=== PATIENT | female | born 1985 | race Caucasian/White ===

== ENCOUNTER 2022-10-13 06:15 | Day surgery (SDC) | payer BC, SELFPAY ==
[2022-10-13] VITALS (13 sets, daily range): BP systolic 97–108; BP diastolic 56–76; PULSE 57–75; RESP 16–20; TEMP 35.9–36.4; O2SAT 94–99
[2022-10-13] MEDS: LACTATED RINGERS 1000 ML 1,000 ML 100 ML IV ×2 (06:25→08:52)
[2022-10-13 06:42] LABS: Ur HCG Qualitative* Negative (Negative)
[2022-10-13] MEDS: SODIUM CHLORIDE 0.9 % (FLUSH) 10 ML SYRINGE IVF (07:08)
[2022-10-13] MEDS: CEFAZOLIN 1 GM inj IVP (07:35)
[2022-10-13] MEDS: BUPIVACAINE 0.5% 30 ML 20 ML INJECTION (07:44)
--- NOTE | 2022-10-13 08:13 | W.ANESCHARGE ---
Anesthesia Charges Start Date/Time Anesthesia Start Date: 10/13/22 Anesthesia Start Time: 07:25 Stop Date/Time Anesthesia Stop Date: 10/13/22 Anesthesia Stop Time: 09:26
--- NOTE | 2022-10-13 08:50 | W.PM.GYNPROC ---
Procedure Note Date Seen: 10/13/22 Procedure Details: Gynecology Intraoperative Consult I was asked by Dr. Lindsay Adame for an intraoperative consultation for identification of the round ligament. Patient was undergoing an open inguinal hernia repair on the left side. Dr. Adame had already opened the hernia sac and palpated within the peritoneal cavity. She in countered thickened rope-like struck soft tissue structure which she believed to be the round ligament. There was an adjacent lobule of fat. She asked for my assessment of this region. Preoperative CT scan was reviewed. The round ligament does appear thickened on that side, with an adjacent fat lobule. On intraoperative exam, the soft tissue structure was examined and was consistent in appearance with round ligament. Putting this on tension and palpating within the peritoneal cavity, I was able to follow the structure to the uterus, confirming its identity as the round ligament. The fatty lobule adjacent to this was not consistent in appearance with ovary. My impressions were discussed with Dr. Adame during the procedure.
--- NOTE | 2022-10-13 08:58 | SUR.OPER ---
PATIENT QUESTIONS ANSWERED SATISFACTORILY PREOPERATIVELY. PATIENT BROUGHT TO OR #3 PER CART. Patient positioned supine on OR #3 bed.? Perioperative team supported arms on arm boards. Final approval of positioning by surgeon. SURGEON DECLINES OFFER TO SEND EXCISED TISSUE TO PATHOLOGY.
--- NOTE | 2022-10-13 09:18 | P.GSOP_ITS ---
Operative Note Date of procedure: 10/13/22 Pre-op diagnosis: Left inguinal hernia Post-op diagnosis: Incarcerated left inguinal hernia Type of Procedure: Open repair incarcerated left inguinal hernia repair with mesh Indications: The patient is a 37-year-old female who noticed a painful bulge in her left groin. Workup revealed fat within inguinal canal. Clinically this was consistent with incarcerated fat in an inguinal hernia. After discussion of options she agreed to proceed with repair. We chose an open approach to ensure the inflamed incarcerated fat was able to be removed completely. Procedure Description: After discussing the risks and benefits of the procedure, the patient signed informed consent.? The operative site was marked and the patient was brought to the operating room and placed on the operating table in supine position.? Care was taken to pad the patient's pressure points.?? The patient was then intubated by anesthesia.?? The operative site was then prepped and draped in the usual sterile fashion.? A time-out was then performed. Local anesthetic was injected into the skin and subcutaneous tissue overlying the inguinal canal. An ilioinguinal nerve block was performed. An oblique incision was made over the external ring. Dissection was carried down into the subcutaneous tissue using cautery until the external oblique fascia was encountered. This was cleared off. The external ring was identified and after injection of more local anesthetic, the external oblique was incised using a knife. This was extended using the Metzenbaum scissors with care to dissect the underlying structures away from the fascia before cutting. There was an obvious hernia which was present in the canal. This was cleared from inside of the inguinal canal and looped with a Neftaly drain. The sac was fatty in appearance and carefully I was able to dissect out the round ligament. This was divided using cautery. There was no bleeding. Now I was left with the sac proximally which again was quite fatty. I carefully dissected through the fatty tissue. I could palpate tissue within the sac. This did not reduce into the peritoneal cavity. Very carefully I incised the distal end of the sac using a Metzenbaum scissors. I entered the peritoneal cavity. There was nodularity on the sac itself and incarcerated omental fat. The patient's round ligament appeared to be making up the inferior and lateral aspect of the sac. This appeared somewhat large and therefore I ask Dr. Figueroa to come and examine to ensure that this is indeed what this structure was. I carefully examined the fat which was incarcerated in the sac to ensure that it was not an ovary. Dr. Figueroa came into the operating room and agreed with me that this was just incarcerated fat and did not appear ovarian. She then examined the round ligament and was able to trace this back to the uterus with palpation. Confirming that this was indeed the round ligament, and not ovary or fallopian tube, I was able to reduce the tissue and oversewed the peritoneum without disturbing the round ligament. This dropped easily into the abdomen. A piece of polypropylene mesh was obtained and cut to size. This was secured to the pubic tubercle using to 0 Prolene on a double-armed suture. The Prolene was run along the inguinal ligament inferiorly and along the transversalis fascia superiorly around past the internal ring. The ilioinguinal nerve was visible and was carefully preserved and care was taken to ensure that it was not sewn into the mesh. The external oblique fascia was then reapproximated with absorbable suture. The wound was then closed in layers including Abdulaziz's fascia and the dermis with absorbable suture. The skin was then closed with a running subcuticular suture. Sterile dressings were applied. Instrument, sponge, and needle counts were correct at the end of the case. The patient was woken and ta germaine to the PACU in stable condition. Sterile dressings were then applied. ? The patient was then woken and transported to the recovery area in stable condition. ? The patient tolerated the procedure well. Findings: Left inguinal hernia with incarcerated fat. Anesthesia: GETA Surgeon: Lindsay Adame MD Estimated blood loss (mL): 5 Condition: stable Disposition: PACU
--- NOTE | 2022-10-13 09:28 | W.ANESCHARGE ---
Anesthesia Charges Start Date/Time Anesthesia Start Date: 10/13/22 Anesthesia Start Time: 07:25 Stop Date/Time Anesthesia Stop Date: 10/13/22 Anesthesia Stop Time: 09:26
[2022-10-13] MEDS: fentaNYL 100 MCG/2 ML inj 50 MCG IVP (09:37)
[2022-10-13] MEDS: HYDROCODONE-ACETAMIN 5-325 MG 1 TAB PO ×2 (10:11→10:45)
== END 2022-10-13 11:43 | disposition home or self-care (01) ==
PROVIDERS: Visit Provider Surgery
PROC: (CPT 49507; principal; 2022-10-13 07:30)
DX: K40.30 Unilateral inguinal hernia, with obstruction, without gangrene, not specified as recurrent (principal)
CPT/HCPCS: 49507; 00830; 81025; A9270; C1781; J0330; J0690; J1100; J1885; J2250; J2405; J2704; J3010; J3490; J7120

== ENCOUNTER 2023-11-02 10:23 | Emergency (ER) | payer OTHER, SELFPAY ==
[2023-11-02 10:32] VITALS: BP 108/77; PULSE 70; RESP 18; TEMP 36.9; O2SAT 95; BMI 28.3
--- NOTE | 2023-11-02 10:43 | CRLHL7_ITS ---
For Patients: As a result of the Century Cures Act, medical imaging exams and procedure reports are released immediately into your electronic medical record. You may view this report before your referring provider. If you have questions, please contact your health care provider. Indication: Trauma to left foot, medial pain Technique: Left foot 3 views. Comparison: None Findings: Bones: Alignment is normal. No fractures or bone lesions. Joint spaces: Unremarkable. Soft tissues: Mild soft tissue swelling medially. Impression: Soft tissue swelling without evidence of fracture. Dictated by Carmine Nicole MD @ 11/02/2023 11:29:32 AM (Electronically Signed)
--- OUTSIDE RECORDS SUMMARY | 2023-11-02 11:11 | XMS_ITS | Clinical Summary ---
Author Organization [facility] Address [place], [place] [address] Care Team Providers Care Pyroglazer Name Role Phone Pcp, No Primary Care Provider Unavailabl e Allergies No known active allergies Medications No known medications Active Problems No known active problems Encounters Date Type Department Care Team Description 09/14/2023 11:15 AM CDT Ancillary Procedure [facility] [address] [place] [address] 09/14/2023 9:10 AM CDT Office Visit [facility] [address] [place] [address] Connie Carter MD Pain (right rib pain radiating into back, stomach pain); Nausea; Dizziness (last night) 09/14/2023 Travel from Last 3 Months Immunizations Name Administration Dates Next Due COVID-19 Vaccine Spikevax (M oderna 50mcg/0.5mL) 12YO+ 9978-1603 Formula PF 02/22/2023 COVID-19 vaccine (M2 Connections-Bio NTech 30mcg/0.3mL) 12YO+ TERENCE-SUCROSE PF, MDV 10/20/2021 COVID-19 vaccine (Pfizer-Bio NTech 30mcg/0.3mL) PF, MDV 09/18/2020,08/28/2020 Hepatitis B (Peds) 02/20/2003,03/09/2000, 000 Inactivated Polio Vaccine 04/13/2000,03/09/2000, 06/24/1999 Influenza A (H1N1), Live Intranasal 03/28/2009 Influenza, IIV3 (Age >=3 years) 02/03/2012 Influenza, IIV4 02/22/2023,06/02/2018 MMR 03/09/2000,06/24/1999 Td (Age >=7 Years) 10/20/2021, 3,03/09/2000,1999 Tdap 11/25/2008 Varicella Vaccine 11/05/2018,07/29/2013 Family History Medical History Relation Name Comments Diabetes Maternal Aunt No Known Problems Maternal Grandfather No Known Problems Maternal Grandmother No Known Problems Mother Heart Disease Paternal Aunt 1 Cancer Paternal Aunt 2 Unsure what kind Heart Disease Paternal Grandfather Heart Disease Paternal Grandmother Heart Disease Paternal Uncle Relation Name Status Comments Maternal Aunt Alive Maternal Grandfather Maternal Grandmother Mother Paternal Aunt 1 Paternal Aunt 2 Paternal Grandfather Paternal Grandmother Paternal Uncle Social History Tobacco Use Types Packs/Day Years Used Date Smoking Tobacco: Never Smokeless Tobacco: Never Tobacco Cessation:Counseling Given: Yes Alcohol Use Standard Drinks/Week Comments Yes 0 (1 standard drink = 0.6 oz pure alcohol) occassional-1x month/special occassions PHQ-2 Answer Date Recorded PHQ-2 TOTAL SCORE 0 10/06/2022 Social Connections Answer Date Recorded Frequency of Communication with Friends and Fami ly Not on file 10/11/2023 Financial Resource Strain Answer Date R ecorded Difficulty of Paying Living Expenses 3 09/19/2022 Difficulty of Paying Living Expenses Not on file 09/19/2022 Food Insecurity Answer Date Recorded Worried About Running Out of Food in the Last Ye ar 1 09/19/2022 Transportation Needs Answer Date Record ed Lack of Transportation (Medical) 1 09/19/2022 Housing Stability Answer Date Recorded Unable to Pay for Housing in the Last Year 1 09/19/2022 Sex and Gender Information Value Date Recorded Sex Assigned at Not on file Gender Identity Not on file Sexual Orientation Not on file Obstetrics History Last Filed Vital Signs Vital Sign Reading Time Taken Comments Blood Pressure 105/73 09/14/2023 9:24 AM CDT Pulse 78 09/14/2023 9:24 AM CDT Temperature 36.7 ??C (98 ??F) 10/06/2022 2:23 PM CDT Respiratory Rate 16 10/06/2022 2:23 PM CDT Oxygen Saturation 99% 09/14/2023 9:24 AM CDT Inhaled Oxygen Concentration - - Weight 65.6 kg (144 lb 9.6 oz) 09/14/2023 9:24 A M CDT Height 152.4 cm (5') 10/06/2022 2:23 PM CDT Body Mass Index 28.24 10/06/2022 2:23 PM CDT Plan of Treatment Health Maintenance Due Date Last Done Comments Pap test for age 21-65 2005 BMI (ht and wt on same day) for age 18+ 10/07/2023 10/06/2022, 10/20/2021 Depression screening for age 12+ 10/07/2023 10/06/2022, 10/06/2022, 10/22/2021, Additional history exists Influenza for age 9-49 01/14/2024 , 06/02/2018, 02/03/2012, Additional history exists Tetanus booster 10/21/2031 10/20/2021, 11/12, 02/20/2003, Additional history exists Tdap Completed 11/25/2008 HIV for age 15-65 Completed 10/06/2022 Hepatitis C screening for age 18-79 Completed 10/06/2022 COVID-19 vaccine series Completed 02/23/20 23, 10/20/2021, 09/18/2020, Additional history exists Pneumococcal series for age 6-64 Aged Out No longer eligible based on patient's age to complete this topic Procedures Procedure Name Priority Date/Time Associated Diagnosis Comments US ABDOMEN LIMITED GALLBLADDER STAT 09/14/2023 10:24 AM CDT Abdominal pain, RUQ (right upper quadrant) Nausea CBC WITH AUTO DIFFERENTIAL STAT 09/14/2023 9:49 AM CDT Abdominal pain, RUQ (right upper quadrant) Nausea C-REACTIVE PROTEIN STAT 09/14/2023 9: 49 AM CDT Abdominal pain, RUQ (right upper quadrant) Nausea COMP METABOLIC PANEL STAT 09/14/2023 9:49 AM CDT Abdominal pain, RUQ (right upper quadrant) Nausea CBC WITH AUTO DIFFERENTIAL STAT 09/14/2023 9:49 AM CDT Abdominal pain, RUQ (right upper quadrant) Nausea LC HIV-1/O/2, 4TH GENERATION Routine 10/06/2022 2:44 PM CDT Preop examination LC HCV ANTIBODY RFX TO QUANT PCR Routine 10/06/2022 2:44 PM CDT Preop examination from Last 3 Months or Most Recently Relevant to Health Maintenance Results * US ABDOMEN LIMITED GALLBLADDER (09/14/2023 10:24 AM CDT) Anatomical Region Laterality Modality Abdomen Ultrasound 09/14/2023 10:3 3 AM CDT Impressions 09/14/2023 10:33 AM CDT No sonographic findings to explain right upper quadrant pain. Dictated by Randy Coyle MD @ 09/14/2023 10:33:30 AM (Electronically Signed) Narrative 09/14/2023 10:33 AM CDT For Patients: ??As a result of the Cures Act, medical imaging exams and procedure reports are released immediately into your electronic medical record. ??You may view this report before your referring provider. ??If you have questions, please contact your health care provider. INDICATION: Right upper quadrant abdominal pain associated with nausea. COMPARISON: None available. TECHNIQUE: Right upper quadrant grayscale and limited color Doppler ultrasound. FINDINGS: Liver: Homogeneous in echotexture. No suspicious focal lesion. No intrahepatic biliary ductal dilatation. Smooth contour. Normal hepatopedal portal venous blood flow. Gallbladder: Nondistended. Free of stones or significant sludge. Normal wall thickness. Negative sonographic Lamar sign. CBD: 4mm Pancreas: Normal where visualized. The pancreas is partially obscured and therefore incompletely evaluated. Right Kidney: Measures 9.9 cm in craniocaudal length. Normal echotexture. No hydronephrosis. No convincing sonographic evidence of nephrolithiasis. Midline Vasculature: Visualized aorta and cava are without significant findings. Peritoneal Cavity: No significant ascites. Additional Findings: None. Procedure Note Randy Coyle MD - 09/14/2023 For Patients: As a result of the Cures Act, medical imagingexams and procedure reports are released immediately into your electronicmedical record. You may view this report before your referring provider.If you have questions, please contact your health care provider. INDICATION: Right upper quadrant abdominal pain associated with nausea. COMPARISON: None available. TECHNIQUE: Right upper quadrant grayscale and limited color Doppler ultrasound. FINDINGS: Liver: Homogeneous in echotexture. No suspicious focal lesion. Nointrahepatic biliary ductal dilatation. Smooth contour. Normal hepatopedalportal venous blood flow. Gallbladder: Nondistended. Free of stones or significant sludge. Normalwall thickness. Negative sonographic Lamar sign. CBD: 4mm Pancreas: Normal where visualized. The pancreas is partially obscured andtherefore incompletely evaluated. Right Kidney: Measures 9.9 cm in craniocaudal length. Normal echotexture.No hydronephrosis. No convincing sonographic evidence of nephrolithiasis. Midline Vasculature: Visualized aorta and cava are without significantfindings. Peritoneal Cavity: No significant ascites. Additional Findings: None. IMPRESSION: No sonographic findings to explain right upper quadrant pain. Dictated by Randy Coyle MD @ 09/14/2023 10:33:30 AM (Electronically Signed) Connie Carter MD * CBC WITH AUTO DIFFERENTIAL (09/14/2023 9:49 AM CDT) WHITE BLOOD COUNT 5.4 4.5 - 11.0 thou/cu mm 09/14/2023 9:54 AM CDT [facility] RED BLOOD COUNT 4.49 4.00 - 5.20 mil/cu mm 09/14/2023 9:54 AM CDT [facility] HEMOGLOBIN 13.8 12.0 - 16.0 g/dL 09/14/2023 9:54 AM CDT [facility] HEMATOCRIT 39.5 33.0 - 51.0 % 09/14/2023 9:54 AM CDT [facility] MCV 88 80 - 100 fL 09/14/2023 9:54 AM CDT [facility] MCH 30.7 26.0 - 34.0 pg 09/14/2023 9:54 AM CDT [facility] MCHC 34.9 32.0 - 36.0 g/dL 09/14/2023 9:54 AM CDT [facility] RDW 12.9 11.5 - 15.5 % 09/14/2023 9:54 AM CDT [facility] PLATELET COUNT 224 140 - 440 thou/cu mm 09/14/2023 9:54 AM CDT [facility] MPV 9.9 6.5 - 11.0 fL 09/14/2023 9:54 AM CDT [facility] % NEUT 64.4 % 09/14/2023 9:54 AM CDT [facility] % LYMPH 21.4 % 09/14/2023 9:54 AM CDT [facility] % MONO 11.8 % 09/14/2023 9:54 AM CDT [facility] % EOS 2.2 % 09/14/2023 9:54 AM CDT [facility] % BASO 0.2 % 09/14/2023 9:54 AM CDT [facility] ABSOLUTE NEUTROPHILS 3.5 1.7 - 7.0 thou/cu mm 09/14/2023 9:54 AM CDT [facility] ABSOLUTE LYMPHOCYTES 1.2 0.9 - 2.9 thou/cu mm 09/14/2023 9:54 AM CDT [facility] ABSOLUTE MONOCYTES 0.6 <0.9 thou/cu mm 09/14/2023 9:54 AM CDT [facility] ABSOLUTE EOSINOPHILS 0.1 <0.5 thou/cu mm 09/14/2023 9:54 AM CDT [facility] ABSOLUTE BASOPHILS 0.0 <0.3 thou/cu mm 09/14/2023 9:54 AM CDT [facility] Blood BLOOD SPECIMEN / Unknown Venipuncture / Unknown 09/14/2023 9:49 AM CDT 09/14/2023 9:51 AM CDT Connie Carter MD HEMATOLOGY [facility] [address] [place] [address], * (ABNORMAL) C-REACTIVE PROTEIN (09/14/2023 9:49 AM CDT) [facility] C-REACTIVE PROTEIN 2.8(H) <0.5 mg/dL 09/14/2023 1:40 PM [facility] Blood BLOOD SPECIMEN / Unknown Venipuncture / Unknown 09/14/2023 9:49 AM CDT 09/14/2023 9:51 AM CDT Connie Carter MD CHEMISTRY [facility] [address] [place] [address] * (ABNORMAL) COMP METABOLIC PANEL (09/14/2023 9:49 AM CDT) [facility] SODIUM 138 136 - 145 mmol/L 09/14/2023 1:40 PM [facility] POTASSIUM 3.8 3.5 - 5.1 mmol/L 09/14/2023 1:40 PM [facility] CHLORIDE 103 98 - 107 mmol/L 09/14/2023 1:40 PM [facility] CO2,TOTAL 26 22 - 29 mmol/L 09/14/2023 1:40 PM [facility] ANION GAP 9 5 - 18 09/14/2023 1:40 PM [facility] GLUCOSE 103(H) 70 - 99 mg/dL 09/14/2023 1:40 PM [facility] CALCIUM 9.1 8.6 - 10.0 mg/dL 09/14/2023 1:40 PM [facility] BUN 6 6 - 20 mg/dL 09/14/2023 1:40 PM [facility] CREATININE 0.56 0.50 - 0.90 mg/dL 09/14/2023 1:40 PM [facility] BUN/CREAT RATIO 11 10 - 20 1:40 PM [facility] eGFR >90 >90 mL/min/1.7 3m2 09/14/2023 1:40 PM [facility] Comment:As of 2021, eG FR is calculated by the CKD-EPI creatinine equation without race adjustment. ??eGFR can be influenced by muscle mass, exercise, and diet. ??The reported eGFR is an estimation only and is only applicable if the renal function is stable. ALBUMIN 4.2 4.0 - 4.9 g/dL 09/14/2023 1:40 PM T [facility] PROTEIN,TOTAL 7.5 6.0 - 8.0 g/dL 09/14/2023 1:40 PM [facility] BILIRUBIN,TOTAL 0.5 0.0 - 1.2 mg/dL 09/14/2023 1:40 PM [facility] ALK PHOSPHATASE 59 35 - 104 IU/L 09/14/2023 1:40 PM [facility] ALT (SGPT) 18 10 - 35 IU/L 09/14/2023 1:40 PM T [facility] AST (SGOT) 29 10 - 35 IU/L 09/14/2023 1:40 PM [facility] Blood BLOOD SPECIMEN / Unknown Venipuncture / Unknown 09/14/2023 9:49 AM CDT 09/14/2023 9:51 AM CDT Connie Carter MD CHEMISTRY Performing Organization Address City/State/[facility] Co de Phone Number [facility] [address] [place] [address] * LC HCV ANTIBODY RFX TO QUANT PCR (10/06/2022 2:44 PM CDT) HCV Ab Non Reactive Non Reactive 10/09/2022 6:07 AM CDT [facility] Blood BLOOD SPECIMEN / Unknown Venipuncture / Unknown 10/06/2022 2:44 PM CDT 10/06/2022 2:48 PM CDT [facility] ([facility]) - 10/09/2022 6:07 AM CDT Performed at: ??[address] ??[id number] Integrated Circuit Design Engineer: Se Guillen MD, Phone: ??[phone] Pawan Alicea MD LABORATORY [facility] ([facility]) [address] [place] [address] * LC HIV-1/O/2, 4TH GENERATION (10/06/2022 2:44 PM CDT) HIV Scr 4th Gen Non Reactive Non Reactive 10/08/2022 11:[address] [facility] Comment: HIV Negative HIV-1/HIV-2 antibodies and HIV-1 p24 antigen were NOT detected. There is no laboratory evidence of HIV infection. Blood BLOOD SPECIMEN / Unknown Venipuncture / Unknown 10/06/2022 2:44 PM CDT 10/06/2022 2:48 PM CDT [facility] ([facility]) - 10/08/2022 11:08 AM CDT Performed at: ??[address] ??[id number] Integrated Circuit Design Engineer: Se Guillen MD, Phone: ??[phone] Pawan Alicea MD LABORATORY [facility] ([facility]) [address] [place] [address] from Last 3 Months or Most Recently Relevant to Health Maintenance Care Teams Pyroglazer Relationship Specialty Start Date End Date Pcp, No . PCP - General 10/15/21
--- NOTE | 2023-11-02 11:13 | ED.GENADULT ---
HPI - General Adult General Chief complaint: Extremity Pain/Injury, Lower Stated complaint: injury - left foot - run over Time Seen by Provider: 11/02/23 10:40 Source: patient Mode of arrival: ambulatory Limitations: no limitations History of Present Illness HPI narrative: 38-year-old female coming in today with a foot injury. States that she was at work when a cart ran over her left foot. She is complaining of pain of the medial foot that goes all the way up to the big toe. Related Data Previous Rx's ?Medication ?Instructions ?Recorded hydrocodone 5 mg-acetaminophen 325 1 tab PO Q4H PRN Pain #14 tabs 10/13/22 mg tablet Allergies Allergy/AdvReac Type Severity Reaction Status Date / Time No Known Allergies Allergy Verified 11/02/23 10:35 Review of Systems Status of ROS: Reports: 6 or more systems reviewed and unremarkable except as noted in History and below [facility] Social History Smoking Status: Never smoker How often do you have a drink containing alcohol: monthly or less AUDIT-C Alcohol total score: 1 Non-prescribed substance use: denies use Caffeine: Yes (coffee) Exam Narrative: Exam Narrative: Well-nourished well-developed patient in no acute distress. Alert and oriented. Answers questions appropriately. Mood and affect are appropriate. Thoughts are goal oriented and rational. No tangential or magical thinking noted. Patient speaks in full sentences without needing to catch her breath. HEENT: Normocephalic atraumatic. Pupils are equally round reactive to light. Extraocular muscles are intact. Conjunctivae are moist without any icterus noted. Moist mucous membranes. Extremities: Left foot has mild swelling at the base of the toe. She has tenderness to palpation of the big toe. She has normal DP and PT pulses. She has no tenderness to palpation of the remainder of the foot. No tenderness at the ankle. She has swelling surrounding the nail of the big toe in that area is also tender to touch. The area is erythematous. Const: Vital Signs, click to edit/add: Vital Signs - 24 hr 11/02/23 10:32 Temperature 98.4 F Pulse Rate [Right Pulse Oximeter] 70 Respiratory Rate 18 Blood Pressure [Ri ght Upper Arm] 108/77 Pulse Oximetry 95 Oxygen Delivery Me thod Room Air Course Course ED Course: Discussed x-ray results with the patient, x-ray does not show any evidence of fracture. She does tell me that the redness around her toe was not present before today. She also tells me that she has had an ingrown toenail on that side. Recommend monitoring that area to make sure it is not becoming infected. Vital Signs Vital signs: Initial Vital Signs Temperature 98.4 F 11/02/23 10:32 Temperature Source Temporal Artery Scan 11/02/23 10:32 Pulse Rate 70 11/02/23 10:32 Pulse Rhythm Regular 11/02/23 10:32 Respiratory Rate 18 11/02/23 10:32 Blood Pressure 108/77 11/02/23 10:32 Blood Pressure Mean 87 11/02/23 10:32 Blood Pressure Position Sitting 11/02/23 10:32 Pulse Oximetry 95 11/02/23 10:32 Oxygen Delivery Method Room Air 11/02/23 10:32 Vital Signs Temperature 98.4 F 11/02/23 10:32 Pulse Rate 70 11/02/23 10:32 Respiratory Rate 18 11/02/23 10:32 Blood Pressure 108/77 11/02/23 10:32 Pulse Oximetry 95 11/02/23 10:32 Oxygen Delivery Method Room Air 11/02/23 10:32 Temperature 98.4 F 11/02/23 10:32 Pulse Rate 70 11/02/23 10:32 Respiratory Rate 18 11/02/23 10:32 Blood Pressure 108/77 11/02/23 10:32 Pulse Oximetry 95 11/02/23 10:32 Oxygen Delivery Method Room Air 11/02/23 10:32 Medical Decision Making MDM Narrative Medical decision making narrative: Injury to the foot and toe. No fractures noted. We discussed symptomatic treatment and reasons for follow-up. Imaging Data X-ray foot: Attestation: I have reviewed the pertinent imaging results. Radiologist's impression: Left foot 3 views. Comparison: None Findings: Bones: Alignment is normal. No fractures or bone lesions. Joint spaces: Unremarkable. Soft tissues: Mild soft tissue swelling medially. Impression: Soft tissue swelling without evidence of fracture. Discharge Plan Discharge Clinical Impression: Crushing injury of left foot Patient Disposition: Home, Self-Care Condition: Stable Additional Instructions: No fractures or visualize today, however, you may have continued pain for the next few days secondary to the nature of the injury. You should elevate the leg as much as possible for the next 1-2 days, ice as needed. You should ice for 20 minutes at a time 3-4 times per day. Do not apply ice directly to the skin. Okay to take ibuprofen 600 mg 3 times per day with food and/or Tylenol up to 1000 mg 3 times per day. Do not take more than what is directed on the bottle. Prescriptions: No Action hydrocodone-acetaminophen 5-325 mg Tablet 1 tab PO Q4H PRN (Reason: Pain) Qty: 14 0RF Follow Up/Referrals: Provider,Not a Local [Primary Care Provider] - Stand Alone Forms: [employer] Info Instructions
== END 2023-11-02 12:09 | disposition home or self-care (01) ==
PROVIDERS: Emergency Provider Family Medicine
DX: S97.82XA Crushing injury of left foot, initial encounter (principal); X58.XXXA Exposure to other specified factors, initial encounter
CPT/HCPCS: 73630; 99283; 99284

== ENCOUNTER 2024-12-18 14:00 | Outpatient (RCR) | payer OTHER, SELFPAY ==
--- NOTE | 2025-01-22 14:50 | REH.OT ---
OT discharge. Pt did not return to scheduled OT sessions. Unsure of progress made as pt had not been seen by OT since 12/18/2024. Pt will require new OT order if she plans to return back for OT.
== END 2025-01-22 15:01 | disposition home or self-care (01) ==
PROVIDERS: Visit Provider Family Medicine
DX: Z51.89 Encounter for other specified aftercare (principal); M25.531 Pain in right wrist; M79.644 Pain in right finger(s); Z02.6 Encounter for examination for insurance purposes
CPT/HCPCS: 97035; 97110; 97140; 97165; 97530; 97535; X5282